=== PATIENT | female | born 1975 | race African-American/Black ===

== ENCOUNTER 2017-05-04 18:32 | Emergency (ER) | payer OTHER ==
--- NOTE | 2017-05-04 20:34 | RAD ---
TWO VIEWS OF THE CHEST 05/04/17 COMPARISON: 11/06/09. HISTORY: Cough that became productive today. FINDINGS: Two views of the chest show normal sized cardiomediastinal silhouette. There is no evidence of consol idation, mass, or pleural effusion. The bones are unremarkable. IMPRESSION: No evidence of acute cardiopulmonary disease. POS: [facility]
== END 2017-05-04 20:43 | disposition home or self-care (01) ==
LOC: ERS 18:32
DX: J06.9 Acute upper respiratory infection, unspecified (principal); I10 Essential (primary) hypertension; Z79.899 Other long term (current) drug therapy
CPT/HCPCS: 71046

== ENCOUNTER 2017-05-25 21:45 | Emergency (ER) | payer OTHER ==
--- NOTE | 2017-05-25 22:23 | RAD ---
TWO VIEW CHEST: 05/25/17 HISTORY: Cough. The lungs are clear. Heart and mediastinum are unremarkable. Osseous structures are unremarkable. IMPRESSION: No acute process identified. POS: [facility]
== END 2017-05-25 23:33 | disposition home or self-care (01) ==
LOC: ERS 21:45
DX: B34.9 Viral infection, unspecified (principal); I10 Essential (primary) hypertension; Z79.899 Other long term (current) drug therapy
CPT/HCPCS: 71046